=== PATIENT | female | born 1965 | race Hispanic/Latino ===

== ENCOUNTER 2017-11-10 11:28 | Observation (INO) | payer MEDICARE ==
[~2017-11-10] VITALS: Ht 172.7 cm; Wt 105.5 kg
[~2017-11-10 11:28] MED LIST: CARVEDILOL3.125 MG PO; HYDRALAZINE HCL25 MG PO; LEVOTHYROXINE100 MC1 PO; LISINOPRIL10 MG PO; NIFEDIPINE ER30 M1 PO; OMEPRAZOLE40 MG PO; PROMETHAZINE HC25 M1 PO; SERTRALINE HCL50 MG PO; TYLENOL WITH C1 EACH PO
--- OUTSIDE RECORDS SUMMARY | 2017-11-10 11:31 | XMS REPORT | Clinical Summary ---
Author Author ROGER [facility] Address Unknown Phone Unavailable Care Team Providers Care Evidence Technician Name Role Phone PCP Unavailable Allergies No Known Allergies Current Medications Prescription Sig. Disp. Refills Start End Date Status Date sevelamer (RENVELA) 800 Take 800 mg by mouth 3 Active mg tablet (three) times daily with meals. hydrALAZINE (APRESOLINE) Take 50 mg by mouth 3 Active 50 MG tablet (three) times daily. pregabalin (LYRICA) 50 MG Take 50 mg by mouth 2 Active capsule (two) times daily. carvedilol (COREG) 6.25 Take 6.25 mg by mouth 2 Active MG tablet (two) times daily with breakfast and dinner. levothyroxine (SYNTHROID, Take 100 mcg by mouth Active LEVOTHROID) 100 MCG Every morning on an empty tablet stomach. cinacalcet (SENSIPAR) 30 Take 30 mg by mouth Active MG tablet daily. acetaminophen (TYLENOL) Take 500 mg by mouth Active 500 MG tablet every 6 (six) hours as needed for Pain. gabapentin (NEURONTIN) Take 300 mg by mouth 3 Active 300 MG capsule (three) times daily. Active Problems Problem Noted Date Acute carpal tunnel syndrome of left wrist 08/17/2016 Acute carpal tunnel syndrome of right wrist 03/23/2016 Social History Tobacco Use Types Packs/Day Years Used Date Never Smoker Alcohol Use Drinks/Week oz/Week Comments No Sex Assigned at Date Recorded Not on file Last Filed Vital Signs Not on file Plan of Treatment Health Maintenance Due Date Last Done Comments INFLUENZA VACCINE 03/03/2018 Results Not on fileafter 11/09/2016
--- OUTSIDE RECORDS SUMMARY | 2017-11-10 11:31 | XMS REPORT ---
Author Author [facility] Address Unknown Phone Unavailable Care Team Providers Care Retread Operator Name Role Phone DONATOJASMINA PALACIOS Unavailable Unavailable Problems This patient has no known problems. Allergies, Adverse Reactions, Alerts This patient has no known allergies or adverse reactions. Medications This patient has no known medications. Results Test Description Test Time Test Comments Text Results Atomic Results Result Comments POTASSIUM-STAT LAB 2016-08-17 11:24:00 POTASSIUM (BEAKER) (test gowo=788) 4.7 meq/L 3.6-5.5 [id number] 10:58:00* Test Item Value Reference Range Comments SODIUM (BEAKER) (test nbeq=691) 138 meq/L 136-145 POTASSIUM (BEAKER) (test nimi=440) 4.7 meq/L 3.5-5.1 CHLORIDE (BEAKER) (test fore=042) 98 meq/L 98-107 CO2 (BEAKER) (test ycqp=995) 26 meq/L 22-29 [id number] 10:58:00* Test Item Value Reference Range Comments GLUCOSE RANDOM (BEAKER) (test amfi=501) 94 mg/dL 70-105 Effective 04/20/2014: Reference Range Change-Adult onlyNew: 70-105 Previous : 70-110BUN AND [id number] 10:58:00* Test Item Value Reference Range Comments BLOOD UREA NITROGEN (BEAKER) (test hmch=917) 36 mg/dL 7-21 CREATININE (BEAKER) (test zvzb=809) 8.54 mg/dL 0.57-1.25 EGFR (BEAKER) (test pdxj=0073) mL/min/1.73 sq m INSUFFICIENT CLINICAL DATA TO CALCULATE ESTIMATED GFR. [id number] 10:25:00* Test Item Value Reference Range Comments HEMOGLOBIN (BEAKER) (test mmrw=771) 13.3 GM/DL 12.0-15.0
[2017-11-10] MEDS ORDERED: ASPIRIN 81 MG CHEW TAB PO ONE (11:45)
[2017-11-10 11:57] LABS: BASOPHILS # (AUTO) 0.1 (0.0-0.1); BASOPHILS % 0.5 % (0.0-1.0); EOSINOPHILS # (AUTO) 0.2 (0.0-0.4); HEMATOCRIT 36.9 % (34.2-44.1); HEMOGLOBIN 12.1 g/dL (12.0-16.0); LYMPHOCYTES % 27.9 % (18.0-39.1); MEAN CORPUSCULAR HEMOGLOBIN 35.2 pg (28-32); MEAN CORPUSCULAR HGB CONC 32.8 g/dL (31-35); MEAN CORPUSCULAR VOLUME 107.3 fL (81-99); MONOCYTES # (AUTO) 0.5 (0.2-0.8); NEUTROPHILS # (AUTO) 6.8 (2.1-6.9); NEUTROPHILS % 63.3 % (38.7-80.0); PLATELET COUNT 322 x10e3/uL (140-360); RED BLOOD COUNT 3.44 x10e6/uL (3.6-5.1); RED CELL DISTRIBUTION WIDTH 18.5 % (11.7-14.4)
[2017-11-10 12:12] LABS: ALANINE AMINOTRANSFERASE 26 IU/L (0-55); ALBUMIN 3.4 g/dL (3.5-5.0); ALBUMIN/GLOBULIN RATIO 0.8 (0.8-2.0); ALKALINE PHOSPHATASE 100 IU/L (40-150); ANION GAP 19.8 mmol/L (8-16); BLOOD UREA NITROGEN 33 mg/dL (7-26); BUN/CREATININE RATIO 3 (6-25); CALCIUM 9.9 mg/dL (8.4-10.2); CARBON DIOXIDE 28 mmol/L (22-29); CHLORIDE 96 mmol/L (98-107); CREATINE KINASE 20 IU/L (29-168); CREATININE, SERUM 9.97 mg/dL (0.57-1.11); EST GLOMERULAR FILTRATION RATE 4 ML/MIN (60-); GLUCOSE 99 mg/dL (74-118); POTASSIUM 4.8 mmol/L (3.5-5.1); SODIUM 139 mmol/L (136-145)
[2017-11-10] MEDS ORDERED: INSULIN REGULAR, HUMAN 100 UNIT/1 ML 3ML VIAL IV ONE (14:00)
[2017-11-10] MEDS ORDERED: SODIUM CHLORIDE FLUSH 10 ML SYR INJ PRN (14:15)
[2017-11-10] MEDS ORDERED: ONDANSETRON HCL INJ 2 MG/ML VIAL IV PRN (14:15)
[2017-11-10] MEDS ORDERED: NITROGLYCERIN 0.4 MG SUBL SL PRN (14:15)
--- OUTSIDE RECORDS SUMMARY | 2017-11-10 14:21 | XMS REPORT | Clinical Summary ---
Author Author ROGER [facility] Address Unknown Phone Unavailable Care Team Providers Care Rn International Name Role Phone PCP Unavailable Allergies No [...]
[2017-11-10] MEDS ORDERED: RENAGEL800 MG (16:04)
[2017-11-10 16:15] VITALS: BP 133/98
[2017-11-10 17:31] VITALS: BP 133/98
[2017-11-10 19:15] VITALS: BP 110/69
[2017-11-10 20:30] VITALS: BP 110/69
[2017-11-10 20:36] LABS: CREATINE KINASE 20 IU/L (29-168)
[2017-11-11 00:30] VITALS: BP 102/69
[2017-11-11 05:00] VITALS: BP 115/73
[2017-11-11 05:52] VITALS: BP 115/73
[2017-11-11 06:28] LABS: BASOPHILS # (AUTO) 0.1 (0.0-0.1); BASOPHILS % 0.7 % (0.0-1.0); EOSINOPHILS # (AUTO) 0.2 (0.0-0.4); HEMATOCRIT 33.8 % (34.2-44.1); HEMOGLOBIN 10.9 g/dL (12.0-16.0); LYMPHOCYTES # (AUTO) 1.6 (1.0-3.2); LYMPHOCYTES % 20.9 % (18.0-39.1); MEAN CORPUSCULAR HEMOGLOBIN 34.8 pg (28-32); MEAN CORPUSCULAR HGB CONC 32.2 g/dL (31-35); MONOCYTES # (AUTO) 0.5 (0.2-0.8); MONOCYTES % 7.1 % (4.4-11.3); NEUTROPHILS # (AUTO) 5.1 (2.1-6.9); PLATELET COUNT 294 x10e3/uL (140-360); RED BLOOD COUNT 3.13 x10e6/uL (3.6-5.1); RED CELL DISTRIBUTION WIDTH 18.6 % (11.7-14.4)
[2017-11-11 07:02] LABS: CREATINE KINASE 17 IU/L (29-168)
[2017-11-11 07:31] LABS: ANION GAP 17.9 mmol/L (8-16); CALCIUM 9.4 mg/dL (8.4-10.2); CHOL/HDL RATIO 4.4 (3.0-3.6); CREATININE, SERUM 11.5 mg/dL (0.57-1.11); POTASSIUM 5.9 mmol/L (3.5-5.1)
[2017-11-11 07:42] VITALS: BP 126/75
[2017-11-11] MEDS ORDERED: ASPIRIN 81 MG ENTERIC COATED PO SCH (09:00)
[2017-11-11] MEDS ORDERED: PROMETHAZINE HCL 25 MG TAB PO PRN (09:45)
[2017-11-11] MEDS ORDERED: LEVOTHYROXINE SODIUM 100 MCG/VIAL IV SCH (09:45)
[2017-11-11] MEDS ORDERED: ACETAMINOPHEN 325 MG TAB PO PRN (09:45)
[2017-11-11 11:56] VITALS: BP 139/88
[2017-11-11] MEDS ORDERED: HYDRALAZINE HCL 25 MG TAB PO SCH (15:00)
[2017-11-11 15:17] LABS: CREATINE KINASE 21 IU/L (29-168)
--- NOTE | 2017-11-11 15:35 | Consultation ---
DATE OF CONSULTATION: November 11, 2017 HISTORY OF PRESENT ILLNESS: Ms. Deysi Cooper is known to me. She is a delightful 52-year-old lady with underlying type 2 diabetes, hypertension, secondary hyperparathyroidism, diabetes, diabetic neuropathy, diabetic retinopathy and diabetic nephropathy leading to end-stage renal disease. Her son recently was diagnosed with lung cancer and she states she probably had a panic attack. She does have a history of anxiety, no history of depression though. Scheduled for dialysis today, but was found to have very high potassium of 5.9, so dialysis was immediately ordered. Patient otherwise comfortable. Denies shortness of breath, nausea, vomiting, or headache. PAST MEDICAL HISTORY: Significant for hypertension and hypothyroidism. ALLERGIES: NO APPARENT DRUG ALLERGIES. MEDICATIONS: The patient is on ondansetron, nitroglycerin p.r.n., lisinopril, levothyroxine, hydralazine, carvedilol, aspirin and Tylenol. For dose schedule, please see MAR. SOCIAL HISTORY: Patient does not smoke or drink. FAMILY HISTORY: Significant for hypertension and diabetes. PHYSICAL EXAMINATION GENERAL: Awake, alert, lying supine, in no apparent distress. VITAL SIGNS: Blood pressure 126/75, pulse rate 75, afebrile. HEAD AND NECK: Cornea clear. Mucosa dry. LUNGS: Occasional bibasilar rales. HEART: S1 and S2 audible. ABDOMEN: Soft and nontender. EXTREMITIES: Lower extremity examination shows no edema. LABORATORY DATA: Show hemoglobin of 10.9 with a potassium level of 5.9. ASSESSMENT AND PLAN 1. Underlying end-stage renal disease. Plan on hemodialysis. 2. Anxiety. 3. Social stressors. Will place on a potassium restricted diet. Resume phosphorus binders. We will get the Mircera dose schedule. Discussed with RN. Job#: [id number] MARV
[2017-11-11 15:46] VITALS: BP 117/85
[2017-11-11] MEDS ORDERED: LISINOPRIL 10 MG TAB PO SCH (17:00)
[2017-11-11] MEDS ORDERED: CARVEDILOL 3.125 MG TAB PO SCH (17:00)
[2017-11-12] MEDS ORDERED: PANTOPRAZOLE SOD 40 MG TABEC PO SCH (09:00)
== END 2017-11-11 17:21 | disposition home or self-care (01) ==
LOC: ER 11:28 → ERHOLD 14:18 → IMCU 16:02 → ACU 11-11 11:14
PROVIDERS: ADMIT Internal Medicine; ATTEND Internal Medicine
DX: R07.89 Other chest pain (principal); E87.5 Hyperkalemia; R06.00 Dyspnea, unspecified; N25.81 Secondary hyperparathyroidism of renal origin; E11.42 Type 2 diabetes mellitus with diabetic polyneuropathy; E11.21 Type 2 diabetes mellitus with diabetic nephropathy; E11.319 Type 2 diabetes mellitus with unspecified diabetic retinopathy without macular edema; Z85.118 Personal history of other malignant neoplasm of bronchus and lung; E11.22 Type 2 diabetes mellitus with diabetic chronic kidney disease; I12.0 Hypertensive chronic kidney disease with stage 5 chronic kidney disease or end stage renal disease; N18.6 End stage renal disease; E03.9 Hypothyroidism, unspecified
CPT/HCPCS: 36415 ×2; 80048; 80053; 80061; 82550 ×2; 82553 ×2; 84484 ×2; 85025 ×2; 85379; 86704; 86706; 86707; 87350; 90935; 93005; 99284; G0378 ×2

== ENCOUNTER 2018-01-10 12:41 | Observation (INO) | payer MEDICARE ==
[~2018-01-10] VITALS: Ht 172.7 cm; Wt 105.3 kg
[~2018-01-10 12:41] MED LIST changes: +RENAGEL800 MG
[2018-01-10 13:23] LABS: BASOPHILS % 0.2 % (0.0-1.0); EOSINOPHILS # (AUTO) 0.5 (0.0-0.4); EOSINOPHILS % 10.4 % (0.0-6.0); HEMATOCRIT 34.2 % (34.2-44.1); HEMOGLOBIN 11.6 g/dL (12.0-16.0); LYMPHOCYTES # (AUTO) 0.9 (1.0-3.2); LYMPHOCYTES % 19.8 % (18.0-39.1); MEAN CORPUSCULAR HEMOGLOBIN 34.4 pg (28-32); MEAN CORPUSCULAR HGB CONC 33.9 g/dL (31-35); MEAN CORPUSCULAR VOLUME 101.5 fL (81-99); MONOCYTES # (AUTO) 0.2 (0.2-0.8); MONOCYTES % 3.5 % (4.4-11.3); NEUTROPHILS % 64.6 % (38.7-80.0); PLATELET COUNT 145 x10e3/uL (140-360); RED BLOOD COUNT 3.37 x10e6/uL (3.6-5.1); RED CELL DISTRIBUTION WIDTH 17.8 % (11.7-14.4)
[2018-01-10 13:43] LABS: ALANINE AMINOTRANSFERASE 20 IU/L (0-55); ALBUMIN 3.2 g/dL (3.5-5.0); ALBUMIN/GLOBULIN RATIO 0.8 (0.8-2.0); ALKALINE PHOSPHATASE 96 IU/L (40-150); ANION GAP 16.9 mmol/L (8-16); BLOOD UREA NITROGEN 23 mg/dL (7-26); BUN/CREATININE RATIO 5 (6-25); CALCIUM 9.1 mg/dL (8.4-10.2); CARBON DIOXIDE 29 mmol/L (22-29); CHLORIDE 96 mmol/L (98-107); CREATINE KINASE 23 IU/L (29-168); CREATININE, SERUM 4.85 mg/dL (0.57-1.11); EST GLOMERULAR FILTRATION RATE 9 ML/MIN (60-); GLUCOSE 94 mg/dL (74-118); LIPASE 23 U/L (8-78); POTASSIUM 3.9 mmol/L (3.5-5.1); SODIUM 138 mmol/L (136-145)
--- NOTE | 2018-01-10 13:53 | Diagnostic Imaging Report ---
EXAM: CT Abdomen and Pelvis WITHOUT contrast INDICATION: \S\right flank pain COMPARISON: None. TECHNIQUE: Abdomen and pelvis were scanned utilizing a multidetector helical scanner from the lung base to the pubic symphysis without administration of IV contrast. Absence of intravenous contrast decreases sensitivity for detection of focal lesions and vascular pathology. Coronal and sagittal reformations were obtained. Routine protocol was performed. IV CONTRAST: None ORAL CONTRAST: Water COMPLICATIONS: None RADIATION DOSE: Total DLP: 742.1 mGy*cm Estimated effective dose: (DLP x 0.015 x size factor) mSv CTDIvol has been reviewed. It is below the limits set by the Radiation Protocol Committee (RPC). FINDINGS: LINES and TUBES: None. LOWER THORAX: Unremarkable HEPATOBILIARY: No focal hepatic lesions. No biliary ductal dilation. GALLBLADDER: No radio-opaque stones or sludge. No wall thickening. SPLEEN: No splenomegaly. PANCREAS: No focal masses or ductal dilatation. ADRENALS: No adrenal nodules KIDNEYS/URETERS: No hydronephrosis. Innumerable renal cysts, limited evaluation without contrast. Right kidney measures approximately 11.5 cm in length, left kidney approximately 12 cm in length. No stones. GI TRACT: No abnormal distention, wall thickening, or evidence of bowel obstruction. Appendix is normal. PELVIC ORGANS/BLADDER: Collapsed bladder. Hysterectomy. No adnexal masses. LYMPH NODES: No lymphadenopathy. VESSELS: There is moderate atherosclerotic disease in the aorta and major arterial branches. PERITONEUM / RETROPERITONEUM: No free air or fluid. BONES: There are degenerative changes in the lumbar spine. SOFT TISSUES: Midline laparotomy scar. IMPRESSION: 1. No acute noncontrast CT abnormalities. 2. Polycystic kidneys. Signed by: DR. Sanchez Hunter MD on 01/10/2018 1:50 PM
[2018-01-10] MEDS ORDERED: VANCOMYCIN 1GM/NS 250 ML 250 ML IV ONE (16:00)
[2018-01-10] MEDS ORDERED: MORPHINE SULFATE INJ 4 MG/ML INJ IV PRN (16:00)
[2018-01-10] MEDS ORDERED: MORPHINE SULFATE 2 MG/ML SYR IV PRN (16:00)
[2018-01-10] MEDS ORDERED: ONDANSETRON HCL INJ 2 MG/ML VIAL IV PRN ×2 (16:00→18:00)
--- NOTE | 2018-01-10 16:02 | Diagnostic Imaging Report ---
PROCEDURE: Frontal and lateral views of the chest. COMPARISON: None. INDICATIONS: FEVER, RIGHT FLANK PAIN FINDINGS: Lines/tubes: None. Lungs: The lungs are well inflated and clear. There is no evidence of pneumonia or pulmonary edema. Pleura: There is no pleural effusion or pneumothorax. Heart and mediastinum: The heart and the mediastinum are normal. Bones: No acute bony abnormality. Upper abdomen: No evidence of free intraperitoneal air. IMPRESSION: No acute cardiopulmonary disease. Dictated by: NASIR EARLY M.D. on 01/10/2018 at 13:57 Electronically approved by: NASIR EARLY M.D. on 01/10/2018 at 13:57
[2018-01-10 16:25] VITALS: BP 97/65
[2018-01-10] MEDS: PIPER-TAZ 3.375 GM 50 ML IV SCH (16:28)
[2018-01-10] MEDS ORDERED: PROMETHAZINE HCL 25 MG TAB PO PRN (16:45)
[2018-01-10] MEDS ORDERED: LISINOPRIL 10 MG TAB PO SCH (17:00)
--- NOTE | 2018-01-10 18:06 | History and Physical ---
CHIEF COMPLAINT: Fevers and chills. HISTORY OF PRESENT ILLNESS: A 52-year-old morbidly obese female with past medical history of ESRD on HD, hypertension, and acid reflux, who comes in to the ED with complaints of fevers, chills, and right-sided flank pain. Patient reports this has been ongoing for the last several days. Of note, she has noticed having subjective fevers on yesterday. Denies any associated symptoms of nausea or vomiting or any chest pain. Patient reports she went to dialysis today and completed her course but still complaining of right-sided flank pain. Imaging studies show no evidence of nephrolithiasis. Patient seen and evaluated at bedside on the medical floor, currently doing well with no other complaints. REVIEW OF SYSTEMS: Pertinent positives: Right-sided flank pain, fevers, chills. Pertinent negatives: Denies any chest pain, palpitation, nausea, vomiting, diarrhea, dysuria, hematuria, frequency, urgency, lightheadedness, dizziness, abdominal pain, headache, shortness of breath, cough, congestion or any other complaints. The rest of the 14-point review of systems have been reviewed with the patient and are negative. ALLERGIES: NO KNOWN DRUG ALLERGIES. HOME MEDICATIONS 1. Carvedilol 6.25 mg p.o. b.i.d. 2. Hydralazine 50 mg p.o. t.i.d. 3. Lisinopril 20 mg b.i.d. 4. Omeprazole 40 mg daily. 5. Promethazine 25 mg every 6 hours as needed for vomiting. 6. Renvela 800 mg t.i.d. with meals. PAST MEDICAL HISTORY: ESRD on HD, hypertension, acid reflux, secondary hyperparathyroidism, hypothyroidism. FAMILY HISTORY: Hypertension, diabetes. SURGICAL HISTORY: AV fistula repair. SOCIAL HISTORY: No drugs. No alcohol. Does not smoke. Good social support. VITAL SIGNS: Temperature is 99, pulse 75, respiratory rate is 20, blood pressure 97/65, pulse ox 94% on room air. LABORATORY DATA: Lab findings show white count is 4.6, hemoglobin 11.6, hematocrit is 34, platelets of 145. Chemistries: Sodium 138, potassium 3.9, chloride 96, bicarb 29, anion gap is 16.9, BUN is 23, creatinine is 4.8, glucose 94, lactic acid 14 which is normal, calcium 9.1, total bilirubin is 0.8, AST 25, ALT is 20, alk phos 96. Troponin is negative. Lipase is 23. MICROBIOLOGY: Blood cultures are pending. IMAGING STUDIES: Chest x-ray which was negative. CT abdomen and pelvis shows no acute findings. She does have polycystic kidney disease seen. PHYSICAL EXAM GENERAL: Not in acute distress. Alert and oriented times 3. Cooperative on examination. HEENT: Head: Normocephalic, atraumatic. Eyes: Pupils are equal, round, and reactive to light bilaterally. Extraocular movements intact bilaterally. NECK: Was supple with good range of motion. Throat: No evidence of any erythema or exudates in the posterior pharynx. Has poor dentition. PULMONARY: Clear to auscultation bilaterally. No wheezing, no rales, no rhonchi, no crackles appreciated. CARDIOVASCULAR: Positive S1, S2. No murmurs, rubs, or gallops appreciated. ABDOMEN: Soft, nondistended, nontender to palpation. Bowel sounds present. MUSCULOSKELETAL: Strength is 5/5 throughout. No evidence of any musculoskeletal deficit on examination. No weakness appreciated. NEUROLOGIC: Cranial nerves II-XII are grossly intact. No evidence of any neurologic deficits on exam. SKIN: Intact. Warm to touch. Good capillary refill. PSYCHIATRIC: Normal affect and mood. EXTREMITIES: No edema. Good range of motion throughout. IMPRESSIONS 1. Subjective fevers with chills. 2. End-stage renal disease, on hemodialysis. 3. Hypertension. 4. Bone mineral disease of end-stage renal disease. 5. Nausea. PLAN: At this time, there is no obvious source of any type of infection but does complain of right-sided flank pain. Patient may likely have underlying right pyelonephritis. Imaging studies are not consistent with it and currently has no urine output for us to get a UA with culture. I will go ahead and just treat for likelihood of right pyelonephritis. Start her on IV vancomycin and Zosyn. Monitor blood and urine cultures. Nephrology has been consulted for management dialysis. We are going to resume all her home medications. We are going to continue to monitor over the next 24 to 48 hours. If cultures are negative and the patient's symptoms are better, will likely discharge home. Job#: [id number] ELIZA
[2018-01-10 18:59] LABS: CREATINE KINASE MB 0.4 ng/mL (0-5.0)
[2018-01-10] MEDS: CARVEDILOL 3.125 MG TAB PO SCH (19:21)
[2018-01-10] MEDS: LISINOPRIL 20 MG TAB PO SCH (19:21)
[2018-01-10] MEDS: SEVELAMER CARBONATE 800 MG TAB PO SCH (19:25)
[2018-01-10] MEDS: HEPARIN SOD (PORCINE) 5,000 UNIT/ML VIAL SC SCH (21:00)
[2018-01-10] MEDS: HYDRALAZINE HCL 25 MG TAB PO SCH (21:06)
[2018-01-10 21:30] VITALS: BP 80/45
[2018-01-11] VITALS (9 sets, daily range): BP systolic 92–129; BP diastolic 47–60
[2018-01-11] MEDS: DIPHENHYDRAMINE HCL 25 MG CAP PO PRN ×2 (02:54→11:05)
[2018-01-11] MEDS ORDERED: SODIUM CHLORIDE 0.9% 250ML 250 ML ONE (03:53)
[2018-01-11] MEDS: PIPER-TAZ 3.375 GM 50 ML IV SCH ×2 (04:00→15:31)
[2018-01-11] MEDS: ACETAMINOPHEN 325 MG TAB PO PRN ×2 (04:55→16:10)
[2018-01-11 05:43] LABS: BASOPHILS % 0.3 % (0.0-1.0); EOSINOPHILS # (AUTO) 0.3 (0.0-0.4); EOSINOPHILS % 4.1 % (0.0-6.0); HEMATOCRIT 30.5 % (34.2-44.1); HEMOGLOBIN 10.2 g/dL (12.0-16.0); LYMPHOCYTES # (AUTO) 1.6 (1.0-3.2); LYMPHOCYTES % 21.6 % (18.0-39.1); MEAN CORPUSCULAR HEMOGLOBIN 34.9 pg (28-32); MEAN CORPUSCULAR HGB CONC 33.4 g/dL (31-35); MEAN CORPUSCULAR VOLUME 104.5 fL (81-99); MONOCYTES # (AUTO) 0.3 (0.2-0.8); MONOCYTES % 4.5 % (4.4-11.3); NEUTROPHILS % 66.8 % (38.7-80.0); PLATELET COUNT 117 x10e3/uL (140-360); RED BLOOD COUNT 2.92 x10e6/uL (3.6-5.1); RED CELL DISTRIBUTION WIDTH 18.2 % (11.7-14.4)
[2018-01-11 06:00] LABS: ANION GAP 18.9 mmol/L (8-16); CALCIUM 8.7 mg/dL (8.4-10.2); CREATININE, SERUM 7.35 mg/dL (0.57-1.11); POTASSIUM 4.9 mmol/L (3.5-5.1)
[2018-01-11 06:22] LABS: CREATINE KINASE MB 1.4 ng/mL (0-5.0)
[2018-01-11 07:41] LABS: BAND NEUTROPHILS % (MANUAL) 2 %; EOSINOPHILS % (MANUAL) 5 % (0-7); LYMPHOCYTES % (MANUAL) 10 % (19-48); METAMYELOCYTES % (MANUAL) 3 % (0-0); MONOCYTES % (MANUAL) 2 % (3.4-9.0); NEUTROPHILS % (MANUAL) 78 % (40-74); NUCLEATED RED BLOOD CELLS 1
[2018-01-11 07:42] LABS: ANISOCYTOSIS SLIG; POIKILOCYTOSIS SLIGHT
[2018-01-11 07:43] LABS: PLATELET ESTIMATE ADEQUATE; PLATELET MORPHOLOGY COMMENT NORMAL; RBC MORPHOLOGY COMMENT ABNORMAL
[2018-01-11] MEDS: PANTOPRAZOLE SOD 40 MG TABEC PO SCH (07:48)
[2018-01-11] MEDS: SEVELAMER CARBONATE 800 MG TAB PO SCH ×3 (07:48→16:51)
[2018-01-11] MEDS: CARVEDILOL 3.125 MG TAB PO SCH ×2 (09:00→17:00)
[2018-01-11] MEDS: LISINOPRIL 20 MG TAB PO SCH ×2 (09:00→17:00)
[2018-01-11] MEDS: HYDRALAZINE HCL 25 MG TAB PO SCH ×3 (09:00→19:58)
[2018-01-11] MEDS: HEPARIN SOD (PORCINE) 5,000 UNIT/ML VIAL SC SCH ×2 (09:20→21:29)
[2018-01-11] MEDS ORDERED: HYDROCODONE/APAP 5MG-325MG TAB PO PRN (12:15)
--- NOTE | 2018-01-11 18:49 | Progress Note ---
DATE: SUBJECTIVE: The patient overnight has been doing well. She was complaining of some itching in which she takes Benadryl at home. She had dialysis yesterday. She is doing well otherwise. Tolerating diet well. OBJECTIVE VITAL SIGNS: Temperature 98, pulse 68, respiratory rate 14, blood pressure 116/56, pulse ox 96% on room air. GENERAL: Not in acute distress. Alert and oriented times 3. Cooperative on exam. HEENT: Head is normocephalic and atraumatic. Eyes: Pupils equal, round and reactive to light bilaterally. Extraocular movements intact bilaterally. NECK: Supple. Good range of motion throughout. Throat with no evidence of any erythema or exudates in the posterior pharynx. She has poor dentition. PULMONARY: Clear to auscultation bilaterally. No wheezing. No rales. No rhonchi appreciated. CARDIOVASCULAR: Positive S1 and S2. No murmurs, rubs or gallops appreciated. ABDOMEN: Soft, nondistended and nontender to palpation. Bowel sounds present. MUSCULOSKELETAL: Strength is 5/5 throughout. No obvious muscle weakness on exam. SKIN: Intact. Warm to touch. Good cap refill. PSYCHIATRIC: Normal affect and mood. EXTREMITIES: No edema. Good range of motion throughout. LAB FINDINGS: White count is 7.5, hemoglobin 10.2, hematocrit 31, and platelets of 117,000. Chemistry: Sodium 134, potassium 4.9, chloride 92, bicarb 28, anion gap of 18, BUN 37, creatinine 7.3. CK of 213. Troponins were negative. MICROBIOLOGY: Blood cultures are pending. IMAGING STUDIES: None. IMPRESSION 1. Subjective fevers with chills with right flank pain, presumed to be underlying pyelonephritis. 2. End-stage renal disease, on hemodialysis. 3. Hypertension. 4. Bone mineral disease of end-stage renal disease. 5. Nausea. PLAN: At this time, ER did not send the urine cultures to the lab. We are going to continue with IV antibiotics due to the fault of the ER not sending the urine culture. She is receiving dialysis by nephrology. We are going to a.m. labs. Benadryl p.r.n. It is presumed that the patient likely has a morphine allergy because she states that she was itching. Will discontinue that. Put her on Tylenol for pain only, as well as p.r.n. [place]. Will continue to monitor the cultures. If the patient is stable and cultures are negative, she may be able to be discharged tomorrow. Job#: [id number] KAYLA
[2018-01-12] VITALS (7 sets, daily range): BP systolic 106–121; BP diastolic 58–82
--- NOTE | 2018-01-12 02:08 | Consultation ---
DATE OF CONSULTATION: January 11, 2018 Patient is well known to me. She is a delightful 52-year-old female with multiple medical issues developed chills and nausea on . Went to dialysis yesterday. Was having a lot of right-sided flank pain and unable to sit down and finish treatment. Presented to the hospital where she had an abdominal CT of pelvis. Please see official report. Shows polycystic kidneys. Other than that, no acute noncontrast CT abnormalities noted. Had a chest x-ray. Please see official report. Shows no acute cardiopulmonary disease. She is currently laying supine. No apparent distress. Denies shortness of breath, nausea, vomiting, or chest pain. Labs show white count of 7.54, hemoglobin 10.2. Labs: Potassium 4.9, creatinine 7.35, CK 213. ALLERGIES: NO APPARENT DRUG ALLERGIES. CURRENT MEDICATIONS: Patient is on: 1. Renagel 800 mg p.o. t.i.d. with meals. 2. Phenergan and ondansetron p.r.n. 3. Morphine sulfate. 4. Lisinopril 20 b.i.d. 5. hydralazine 50 mg p.o. t.i.d. 6. She is on carvedilol 6.25 b.i.d. 7. Benadryl prn 8. Peptazol. Blood cultures are pending. PAST HISTORY: History of end-stage renal disease, underlying hypertension, atherosclerotic cardiovascular disease, underlying hypothyroidism, anemia of chronic kidney disease. PHYSICAL EXAMINATION GENERAL: Awake, alert and lying supine. No apparent distress. VITALS: Blood pressure of 92/47, pulse rate 77, afebrile, respiratory rate 18. HEAD AND NECK: Cornea clear. Oral mucosa dry. LUNGS: Relatively clear. HEART: S1 and S2 audible. ABDOMEN: Otherwise soft and nontender. LOWER EXTREMITY: Shows no edema. IMPRESSION AND PLAN 1. Relative hypotension: Will edit the hydralazine dose and hold if systolic blood pressure is less than 130. 2. The patient had chills and nausea with flank pain: Computerized tomography scan is negative. Blood cultures pending. Agree with antibiotics. Currently, no acute indications for dialysis. Will place on a potassium restricted diet. Further recommendations to follow. Job#: [id number] RI
[2018-01-12] MEDS: PIPER-TAZ 3.375 GM 50 ML IV SCH (04:06)
[2018-01-12 05:21] LABS: BASOPHILS % 0.4 % (0.0-1.0); EOSINOPHILS # (AUTO) 0.6 (0.0-0.4); EOSINOPHILS % 10.6 % (0.0-6.0); HEMATOCRIT 29.6 % (34.2-44.1); HEMOGLOBIN 9.8 g/dL (12.0-16.0); LYMPHOCYTES # (AUTO) 0.9 (1.0-3.2); LYMPHOCYTES % 16.8 % (18.0-39.1); MEAN CORPUSCULAR HEMOGLOBIN 34.4 pg (28-32); MEAN CORPUSCULAR HGB CONC 33.1 g/dL (31-35); MEAN CORPUSCULAR VOLUME 103.9 fL (81-99); MONOCYTES # (AUTO) 0.2 (0.2-0.8); MONOCYTES % 3.6 % (4.4-11.3); NEUTROPHILS # (AUTO) 3.5 (2.1-6.9); NEUTROPHILS % 65.8 % (38.7-80.0); PLATELET COUNT 110 x10e3/uL (140-360); RED BLOOD COUNT 2.85 x10e6/uL (3.6-5.1); RED CELL DISTRIBUTION WIDTH 17.7 % (11.7-14.4)
[2018-01-12 05:33] LABS: ANION GAP 20.4 mmol/L (8-16); CALCIUM 8.6 mg/dL (8.4-10.2); CREATININE, SERUM 9.94 mg/dL (0.57-1.11); POTASSIUM 4.4 mmol/L (3.5-5.1)
[2018-01-12 06:25] LABS: BAND NEUTROPHILS % (MANUAL) 1 %; EOSINOPHILS % (MANUAL) 5 % (0-7); LYMPHOCYTES % (MANUAL) 16 % (19-48); NEUTROPHILS % (MANUAL) 78 % (40-74)
[2018-01-12 06:27] LABS: ANISOCYTOSIS SLIG; PLATELET ESTIMATE ADEQUATE; PLATELET MORPHOLOGY COMMENT NORMAL; POIKILOCYTOSIS SLIGHT; RBC MORPHOLOGY COMMENT ABNORMAL
[2018-01-12 07:03] LABS: CLARITY,URINE CLOUDY (CLEAR); COLOR,URINE YELLOW (YELLOW)
[2018-01-12 07:04] LABS: BILIRUBIN,URINE NEGATIVE (NEGATIVE); KETONES,URINE NEGATIVE (NEGATIVE); LEUKOCYTE ESTERASE ,URINE NEGATIVE (NEGATIVE); NITRITE,URINE NEGATIVE (NEGATIVE); PROTEIN,URINE DIPSTICK 2+ (NEGATIVE); URINE UROBILINOGEN 0.2 mg/dL (0.2 - 1)
[2018-01-12 07:23] LABS: BACTERIA,URINE MANY /HPF; EPITHELIAL CELLS,URINE MODERATE /LPF; WBC,URINE (MAN) 0-5 /HPF (0-5)
[2018-01-12] MEDS: ACETAMINOPHEN 325 MG TAB PO PRN (07:36)
[2018-01-12] MEDS: PANTOPRAZOLE SOD 40 MG TABEC PO SCH (07:50)
[2018-01-12] MEDS: DIPHENHYDRAMINE HCL 25 MG CAP PO PRN (07:50)
[2018-01-12] MEDS: SEVELAMER CARBONATE 800 MG TAB PO SCH ×2 (07:50→11:38)
[2018-01-12] MEDS: HYDRALAZINE HCL 25 MG TAB PO SCH (08:33)
[2018-01-12] MEDS: CARVEDILOL 3.125 MG TAB PO SCH (09:00)
[2018-01-12] MEDS: LISINOPRIL 20 MG TAB PO SCH (09:00)
[2018-01-12] MEDS: HEPARIN SOD (PORCINE) 5,000 UNIT/ML VIAL SC SCH (09:36)
[2018-01-12] MEDS ORDERED: LEVOFLOXACIN 500 MG TAB PO NR (14:08)
[2018-01-12] MEDS ORDERED: LEVAQUIN500 MG PO (14:27)
--- NOTE | 2018-01-12 23:50 | Discharge Summary ---
FINAL DISCHARGE DIAGNOSES: 1. Subjective fevers--with right flank pain, presumed to be underlying pyelonephritis, but with negative urinalysis. 2. End-stage renal disease on hemodialysis. 3. Hypertension. 4. Bone mineral disease of end-stage renal disease. 5. Nausea--resolved. CONSULTANTS: Nephrology. VITAL SIGNS: Temperature is 97, pulse 68, respiratory rate is 14, blood pressure 118/79, pulse ox is 96% on room air. LAB FINDINGS: Show white count 5.2, hemoglobin 9.8, hematocrit is 29.6 and platelets of 110,000. Chemistry: Sodium 132, potassium 4.4, chloride 92, bicarb 24, anion gap of 20, BUN is 51, creatinine is 9.9. Lactic acid was 14 which was normal. Lipase is 23, normal. Troponin negative times 3. Urinalysis: RBCs 6 to 10, WBCs 0 to 5, leukocyte esterase negative, negative nitrite. MICROBIOLOGY: Blood cultures were negative. IMAGING STUDIES: Chest x-ray negative. CT abdomen and pelvis: No acute noncontrast CT abnormalities. Shows evidence of polycystic kidney disease. HOSPITAL COURSE: This is a 52-year-old female, morbidly obese, ESRD on dialysis who came in with complaints of subjective fevers and right-sided flank pain. Patient was admitted and nephrology was consulted. Patient was started on IV antibiotics. They initially thought that the patient likely had some underlying pyelonephritis, but there was no evidence of any white count or any fever here in the hospital. Urinalysis was negative. Patient was still maintained on IV antibiotics. Blood cultures were negative. She will be discharged on oral Levaquin to take after hemodialysis days for 2 weeks. Seems to be very less likely the patient had underlying nephritis. There is no fever here recorded in this hospital stay. Patient received dialysis by nephrology. Her blood pressure was well managed and controlled. On the day of discharge, patient was doing well, back to normal baseline, had no other complaints and her flank pain was all gone. It was presumed that the patient likely has a musculoskeletal etiology to her flank pain. On the day of discharge, vital signs stable, labs were reviewed and stable. The patient was seen, evaluated and examined thoroughly on the day of discharge. No other complaints. Patient verbalized understanding and agrees with plan of care. To follow up accordingly as an outpatient with her primary care physician in 1 week as well as her normal dialysis schedule which is tomorrow, Saturday, Saturday, Saturday. MEDICATIONS: Patient will be discharged on Levaquin 500 mg 1 tab p.o. q.48 h., please take after hemodialysis treatment for 7 total tabs. DISPOSITION: To home. CONDITION: Stable. DIET: Renal. FOLLOWUP: With her PCP in 1 week, followup with her normal dialysis show time and schedule. In the event of any worsening symptoms, patient was to come back to the ED for further evaluation. Discharge summary took greater than 35 minutes. GARRISON MARVIN MD Job#: [id number] NADINE
== END 2018-01-12 14:52 | disposition home or self-care (01) ==
LOC: ER 12:41 → ERHOLD 16:21 → IMCU 21:19
PROVIDERS: ADMIT Internal Medicine; ATTEND Internal Medicine
DX: R50.9 Fever, unspecified (principal); I12.0 Hypertensive chronic kidney disease with stage 5 chronic kidney disease or end stage renal disease; N18.6 End stage renal disease; Z99.2 Dependence on renal dialysis; E66.01 Morbid (severe) obesity due to excess calories; R10.9 Unspecified abdominal pain; I25.10 Atherosclerotic heart disease of native coronary artery without angina pectoris; E03.9 Hypothyroidism, unspecified; D63.1 Anemia in chronic kidney disease; I95.89 Other hypotension; M89.8X9 Other specified disorders of bone, unspecified site; R11.0 Nausea
CPT/HCPCS: 36415 ×3; 71046; 74176; 80048 ×2; 80053; 81001; 82550 ×2; 82553 ×2; 83605; 83690; 84484 ×2; 85025 ×3; 87040; 87086; 93005; 99284; G0378 ×3; J1644 ×3; J2270; J2405; J2543 ×3; J3370; J7050; S0164 ×2